=== PATIENT | female | born 1955 | race Caucasian/White ===

== ENCOUNTER 2016-12-26 06:42 | Day surgery (SDC) | payer BC ==
[~2016-12-26 06:42] MED LIST: AMIODARONE HCL200 M1; CHANTIX0.5 MG/TAB; COREG6.25 M1 PO; ELIQUIS5 M1 PO; FOLIC SL; PRINIVIL5 M1 PO; PROBIOTIC1 EAC7 PO; TOPROL XL100 M1 PO; VITAMIN B SL; VITAMIN D31000 UNI3 PO; ZESTRIL5 M1 PO; [UNRECOGNIZED DRUG - REMARK]
[2016-12-26 07:45] LABS: BASO % 0.3 % (0-2); EOS % 3.7 % (0-7); EOSINOPHIL ABSOLUTE COUNT 0.3 tho/cmm (0.0-0.7); HGB-HEMOGLOBIN 14.9 gm/dl (12.0-15.5); IMMATURE GRANULOCYTES ABSOLUTE 0.02 tho/cmm (0-0.03); IMMATURE GRANULOCYTES PERCENT 0.3 % (0-0.3); LYMPH % 26.9 % (20-45); LYMPH ABSOLUTE COUNT 2.1 tho/cmm (0.8-4.5); MCH (MEAN CORPUSCULAR HGB) 32.2 pg (28.0-32.0); MCHC MEAN CORPUSCULAR HGB CONC 33.9 % (32.0-36.0); MEAN PLATELET VOLUME 10.1 cmc (9.4-12.4); MONO % 8.5 % (0-12); MONOCYTE ABSOLUTE COUNT 0.7 tho/cmm (0.0-1.2); NEUTROPHIL ABSOLUTE COUNT 4.8 tho/cmm (1.6-8.0); NEUTROPHIL-AUTOMATED 4.8 tho/cmm (1.6-8.0); NEUTROPHILS % 60.3 % (40-80); PLATELET COUNT 192 tho/cmm (150-450); RED BLOOD COUNT 4.63 mil/cmm (4.00-5.20); WHITE BLOOD COUNT 7.9 tho/cmm (4.0-10.0)
[2016-12-26 08:01] LABS: ANION GAP 12 mmol/L (0-20); BLOOD UREA NITROGEN 14 mg/dl (6-24); CALCIUM 8.6 mg/dl (8.5-10.5); CARBON DIOXIDE-VENOUS 27 mmol/L (22-32); CHLORIDE 108 mmol/l (96-110); CREATININE 0.78 mg/dl (0.50-1.10); GLUCOSE 106 mg/dL (70-110); POTASSIUM 3.9 mmol/L (3.7-5.1); SODIUM 143 mmol/L (135-145); eGFR VALUE FOR BLACK >90 mL/Min
== END 2016-12-26 14:13 ==
LOC: SHSB 06:42
PROVIDERS: Internal Medicine Interventional Cardiology
DX: I25.10 Atherosclerotic heart disease of native coronary artery without angina pectoris (principal); I48.0 Paroxysmal atrial fibrillation; I42.9 Cardiomyopathy, unspecified; I34.0 Nonrheumatic mitral (valve) insufficiency; Z88.0 Allergy status to penicillin; Z90.49 Acquired absence of other specified parts of digestive tract; Z90.710 Acquired absence of both cervix and uterus; Z96.652 Presence of left artificial knee joint; F17.210 Nicotine dependence, cigarettes, uncomplicated; Z79.899 Other long term (current) drug therapy
CPT/HCPCS: C1887; C1894; J1644; J2250; J3010; J7030; Q9967